=== PATIENT | female | born 1965 | race Caucasian/White ===

== ENCOUNTER 2022-01-06 21:42 | Emergency (ER) | payer BC, OTHER ==
[~2022-01-06] VITALS: Ht 157.5 cm; Wt 81.6 kg
[~2022-01-06 21:42] MED LIST: Z.0.ENALAPRIL MALEA2; Z.0.LEVOTHYROXINE175; Z.0.OMEPRAZOLE20 MG
[2022-01-06] MEDS ORDERED: IBUPROFEN 600 MG TAB PO STA (21:59)
[2022-01-06] MEDS ORDERED: HYDROCODON-ACE1 EAC9 PO (22:45)
[2022-01-06 23:01] VITALS: BP 141/85
== END 2022-01-06 22:58 | disposition home or self-care (01) ==
LOC: ER 21:51
DX: M79.671 Pain in right foot (principal); S92.351A Displaced fracture of fifth metatarsal bone, right foot, initial encounter for closed fracture; X50.1XXA Overexertion from prolonged static or awkward postures, initial encounter; Y93.01 Activity, walking, marching and hiking; Y92.89 Other specified places as the place of occurrence of the external cause; K21.9 Gastro-esophageal reflux disease without esophagitis; Z85.850 Personal history of malignant neoplasm of thyroid
CPT/HCPCS: 99283